=== PATIENT | female | born 1980 | race African-American/Black ===

== ENCOUNTER → 2017-09-26 | Outpatient (CLI) | payer OTHER ==
[~2017-09-26] MED LIST: CORTISPORIN OTI10 M2 OTIC; HYDROCHLOROTHIAZIDE PO; MOBIC15 MG PO; NORVASC5 MG PO; PRENATAL PO; PRILOSEC 20 MG20 MG PO; TUSSIN DM MAX118 ML PO
== END ==
LOC: ULTRA 13:13
DX: D25.9 Leiomyoma of uterus, unspecified (principal); R19.07 Generalized intra-abdominal and pelvic swelling, mass and lump

== ENCOUNTER → 2017-12-09 | Outpatient (CLI) | payer OTHER | LOC: ULTRA 15:03 | DX: E04.1 Nontoxic single thyroid nodule (principal) ==

== ENCOUNTER → 2018-11-11 | Outpatient (CLI) | payer OTHER | LOC: ULTRA 09:41 | DX: D25.9 Leiomyoma of uterus, unspecified (principal); N88.8 Other specified noninflammatory disorders of cervix uteri ==

== ENCOUNTER 2019-07-12 20:12 | Emergency (ER) | payer OTHER ==
[~2019-07-12] VITALS: Ht 167.6 cm; Wt 137.4 kg
[2019-07-12] MEDS ORDERED: CLEOCIN HCL150 MG PO (21:52)
[2019-07-12] MEDS ORDERED: NORCO 5-325 TA1 EAC1 PO (21:52)
[2019-07-12 22:10] VITALS: BP 159/101
== END 2019-07-12 22:10 | disposition home or self-care (01) ==
LOC: ER 20:12
DX: L05.01 Pilonidal cyst with abscess (principal); I10 Essential (primary) hypertension; J45.909 Unspecified asthma, uncomplicated; Z88.8 Allergy status to other drugs, medicaments and biological substances

== ENCOUNTER 2021-03-06 12:21 | Emergency (ER) | payer OTHER ==
[~2021-03-06] VITALS: Ht 167.6 cm; Wt 117.5 kg
[~2021-03-06 12:21] MED LIST changes: +CLEOCIN HCL150 MG PO; +NORCO 5-325 TA1 EAC1 PO
[2021-03-06 14:08] LABS: URINE BILIRUBIN NEGATIVE (Negative); URINE BLOOD 3+ (Negative); URINE CLARITY CLOUDY; URINE COLOR DARK YELLOW; URINE GLUCOSE-RANDOM* NEGATIVE (Negative); URINE KETONES NEGATIVE (Negative); URINE LEUKOCYTES-REFLEX NEGATIVE (Negative); URINE NITRITE-REFLEX NEGATIVE (Negative); URINE PROTEIN (DIPSTICK) 1+ (Negative); URINE SPECIFIC GRAVITY >= 1.030 (1.005-1.035); URINE UROBILINOGEN 0.2 E.U./dl (0.2-1.0)
[2021-03-06 14:33] LABS: CASTS None Seen /LPF (None Seen); SQUAMOUS 0-3 Few /LPF (0-3); URINE RBC >20 Many /HPF (NONE SEEN); URINE WBC-REFLEX 0-5 Rare /HPF (0-5)
[2021-03-06 14:34] LABS: BACTERIA-REFLEX None Seen /HPF (None Seen); CRYSTALS None Seen /LPF (None Seen)
[2021-03-06] MEDS ORDERED: FLEXERIL PO (14:48)
[2021-03-06] MEDS ORDERED: IBUPROFEN 800800 MG PO (14:48)
[2021-03-06 15:20] VITALS: BP 153/106
== END 2021-03-06 15:21 | disposition home or self-care (01) ==
LOC: ER 12:21
PROVIDERS: Emergency Medicine
DX: S39.012A Strain of muscle, fascia and tendon of lower back, initial encounter (principal); S46.912A Strain of unspecified muscle, fascia and tendon at shoulder and upper arm level, left arm, initial encounter; S16.1XXA Strain of muscle, fascia and tendon at neck level, initial encounter; I10 Essential (primary) hypertension; J45.909 Unspecified asthma, uncomplicated; Z88.8 Allergy status to other drugs, medicaments and biological substances; V49.49XA Driver injured in collision with other motor vehicles in traffic accident, initial encounter; Y93.I9 Activity, other involving external motion; Y92.488 Other paved roadways as the place of occurrence of the external cause; Y99.8 Other external cause status